=== PATIENT | male | born 1990 | race Two or more races ===

== ENCOUNTER 2017-02-12 10:05 | Emergency (ER) | payer SELFPAY ==
[~2017-02-12 10:05] MED LIST: BACTRIM DS TAB1 EAC2 PO; CEPHALEXIN500 M1 PO; NO HOME MEDICATION XX; TRIAMCINOLONE A15 G2 TP
[2017-02-12] MEDS ORDERED: TRIAMCINOLONE A15 G2 TP (10:41)
== END 2017-02-12 11:08 ==
LOC: EDMED 10:05
DX: R21 Rash and other nonspecific skin eruption (principal); F17.210 Nicotine dependence, cigarettes, uncomplicated

== ENCOUNTER 2017-02-21 12:19 | Emergency (ER) | payer SELFPAY ==
[2017-02-21] MEDS ORDERED: VIGAMOX3 M1 OP (14:36)
== END 2017-02-21 14:54 ==
LOC: EDMED 12:19
DX: T15.02XA Foreign body in cornea, left eye, initial encounter (principal); T15.01XA Foreign body in cornea, right eye, initial encounter; X58.XXXA Exposure to other specified factors, initial encounter